=== PATIENT | female | born 1960 | race Caucasian/White ===

== ENCOUNTER → 2020-03-10 | Outpatient (CLI) | payer BC ==
[~2020-03-10] MED LIST: ATEN50 PO; B Complex1 EAC2; CALMAGZIN; FLAX; GLUC500; L-ARGININE1000 MG; LISI20 PO; Mobic15 MG PO; NAPR220 PO; OMEP10ER; OMEPRAZOLE MAGN20 MG PO; TRAM50 PO
[2020-03-11 15:09] LABS: HPV 16 Negative (Negative); HPV 18 Negative (Negative); HPV OTHER HR TYPES Negative (Negative)
== END | disposition home or self-care (01) ==
LOC: LAB SHORT 10:22 → LAB 10:22
PROVIDERS: Obstetrics & Gynecology
DX: Z01.419 Encounter for gynecological examination (general) (routine) without abnormal findings (principal)
CPT/HCPCS: 87624; G0123

== ENCOUNTER 2020-09-04 07:57 | Day surgery (SDC) | payer BC ==
[~2020-09-04] VITALS: Ht 170.2 cm; Wt 99.2 kg
[~2020-09-04 07:57] MED LIST changes: +ATOR20 PO; +ESCITALOPRAM OXA5 MG PO; +METO50ER PO; +MOBIC15 MG PO; +OMEP20ER PO
--- NOTE | 2020-09-04 10:03 | NUR ---
09/04/20 1003 Sarah De La Cruz BUPIVICANE 0.5% & LIDOCAINE 1% 1:100,000 1:[address] CASTILLO PRIOR TO SX START. TOTAL OF 10 MLS INJECTED.
== END 2020-09-04 10:55 | disposition home or self-care (01) ==
LOC: ORSCSDS 07:57
PROVIDERS: Orthopaedic Surgery
PROC: 01N50ZZ Release Median Nerve, Open Approach (ICD-10-PCS; principal; 2020-09-04 09:45)
DX: G56.01 Carpal tunnel syndrome, right upper limb (principal); I10 Essential (primary) hypertension; K21.9 Gastro-esophageal reflux disease without esophagitis; G47.33 Obstructive sleep apnea (adult) (pediatric); E66.01 Morbid (severe) obesity due to excess calories; Z68.34 Body mass index [BMI] 34.0-34.9, adult; Z79.899 Other long term (current) drug therapy
CPT/HCPCS: J0690; J2250; J2704; J3010; J7120

== ENCOUNTER 2020-10-07 10:06 | Day surgery (SDC) | payer BC ==
[~2020-10-07] VITALS: Ht 170.2 cm; Wt 105.1 kg
[~2020-10-07 10:06] MED LIST changes: +ESCITALOPRAM OX10 M1 PO
== END 2020-10-07 12:36 | disposition home or self-care (01) ==
LOC: ORSCSDS 10:06
PROVIDERS: Internal Medicine Gastroenterology
PROC: 0DB58ZX Excision of Esophagus, Via Natural or Artificial Opening Endoscopic, Diagnostic (ICD-10-PCS; principal; 2020-10-07 11:30)
DX: K22.70 Barrett's esophagus without dysplasia (principal); G47.33 Obstructive sleep apnea (adult) (pediatric); E78.5 Hyperlipidemia, unspecified; F41.9 Anxiety disorder, unspecified; I10 Essential (primary) hypertension; K21.9 Gastro-esophageal reflux disease without esophagitis; K44.9 Diaphragmatic hernia without obstruction or gangrene; E66.9 Obesity, unspecified; Z68.36 Body mass index [BMI] 36.0-36.9, adult; Z79.899 Other long term (current) drug therapy
CPT/HCPCS: 88305; J2704; J7120

== ENCOUNTER 2022-05-06 08:10 | Day surgery (SDC) | payer BC ==
[~2022-05-06] VITALS: Ht 167.6 cm; Wt 112.9 kg
--- NOTE | 2022-05-06 09:42 | NUR ---
05/06/22 0942 Sarah De La Cruz 0.15ML OF EPI 1MG/ML ADDED TO 30ML OF BUPIVICAINE 0.5% TO CREATE A SOLUTION OF BUPIVICAINE 0.5% WITH EPI 1:200,000.
--- NOTE | 2022-05-06 10:32 | NUR ---
05/06/22 1032 PEDRO ALCANTARA PT PLACED ON 10L FACE TENT JUST AFTER COMING TO PACU. O2 LEVELS HAD DROPPED ONCE IN PACU. TRIAL TO 5L PT O2 LEVEL IS 100%. PT HAS HX SLEEP APNEA AND USES CP.
--- NOTE | 2022-05-06 11:01 | NUR ---
05/06/22 1101 PEDRO ALCANTARA PAIN PILL GIVEN TO PT- PAIN 5/10 AT THIS TIME. SHE DECLINES IV MEDICATION AT THIS TIME. WOULD LIKE PAIN TO BE 3/10 PRIOR TO GOING HOME IS HER GOAL.
== END 2022-05-06 11:15 | disposition home or self-care (01) ==
LOC: ORSCSDS 08:10
PROVIDERS: Podiatrist Foot & Ankle Surgery
PROC: 0SGN04Z Fusion of Left Metatarsal-Phalangeal Joint with Internal Fixation Device, Open Approach (ICD-10-PCS; principal; 2022-05-06 09:15)
DX: M20.5X2 Other deformities of toe(s) (acquired), left foot (principal); M79.672 Pain in left foot; G47.33 Obstructive sleep apnea (adult) (pediatric); F41.8 Other specified anxiety disorders; I10 Essential (primary) hypertension; K21.9 Gastro-esophageal reflux disease without esophagitis; E78.00 Pure hypercholesterolemia, unspecified; Z79.899 Other long term (current) drug therapy; E66.01 Morbid (severe) obesity due to excess calories; Z68.39 Body mass index [BMI] 39.0-39.9, adult
CPT/HCPCS: A9270; C1713; J0171; J0690; J1885; J2250; J2704; J3010

== ENCOUNTER 2022-06-30 09:41 | Day surgery (SDC) | payer BC ==
[~2022-06-30] VITALS: Ht 170.2 cm; Wt 116.8 kg
--- NOTE | 2022-06-30 11:27 | NUR ---
06/30/22 1127 Debbie Trevino UPDATED PT. THAT WAS RUNNING BEHIND. PT. GIVEN A WARM BLANKET. CALL LIGHT IS WITHIN REACH.
== END 2022-06-30 12:46 | disposition home or self-care (01) ==
LOC: ORSCSDS 09:41
PROVIDERS: Student in an Organized Health Care Education/Training Program
PROC: 0DBG8ZX Excision of Left Large Intestine, Via Natural or Artificial Opening Endoscopic, Diagnostic (ICD-10-PCS; principal; 2022-06-30 11:00)
PROC: 0DBP8ZX Excision of Rectum, Via Natural or Artificial Opening Endoscopic, Diagnostic (ICD-10-PCS; principal; 2022-06-30 11:00)
PROC: 0DBF8ZX Excision of Right Large Intestine, Via Natural or Artificial Opening Endoscopic, Diagnostic (ICD-10-PCS; principal; 2022-06-30 11:00)
DX: R19.7 Diarrhea, unspecified (principal); K62.5 Hemorrhage of anus and rectum; K62.1 Rectal polyp; I10 Essential (primary) hypertension; G47.33 Obstructive sleep apnea (adult) (pediatric); E66.01 Morbid (severe) obesity due to excess calories; Z68.41 Body mass index [BMI] 40.0-44.9, adult; E78.5 Hyperlipidemia, unspecified; F41.8 Other specified anxiety disorders; Z79.899 Other long term (current) drug therapy
CPT/HCPCS: 88305; J2405; J2704; J7120

== ENCOUNTER 2022-08-30 08:49 | Day surgery (SDC) | payer BC ==
[~2022-08-30] VITALS: Ht 170.2 cm; Wt 116.0 kg
[~2022-08-30 08:49] MED LIST changes: +ESTRADIOL
--- NOTE | 2022-08-30 09:50 | NUR ---
Ambulatory in Day Surgery. Pre-Op teaching done. Pt verbalizes understanding. Patient confirms NPO status and agrees with scheduled surgery. Patient reports completing Chlorhexadine shower X2 prior to admission to hospital. Lungs clear T/O to Auscultation.
--- NOTE | 2022-08-30 13:30 | NUR ---
ARRIVED TO ROOM VIA BED, DROWSY, DENIES ANY PAIN, STATES SHE FORGOT HER CPAP, PT DESATS TO 88% ON RA, PLACED ON 2L O2 VIA NC, CPAP ORDERED, CONT. TO MONITOR FOR ANY CHANGES.
--- NOTE | 2022-08-30 18:25 | NUR ---
SHIFT SUMMARY PATIENT NEW ADMIT TO UNIT POST OP R TKA WITH DR CASTILLO. ALERT AND ORIENTED. GENERAL ANESTHESIA, PAIN CONTROLLED WITH NON-NARCOTIC MEDS AT THIS TIME. ABLE TO AMBULATE TO BATHROOM. VOIDING WELL, TOLERATING DIET NAD LIQUIDS. SALINE LOCKED. R KNEE AQUACEL C/D/I. UP TO RECLINER FOR DINNER. SPOUSE ATTENTIVE IN ROOM DURING AFTERNOON. WORKED WITH PHYSICAL THERAPY. PLAN TO DISCHARGE HOME TOMORROW AFTER CLEARING PHYSICAL THERAPY.
[2022-08-31 05:11] LABS: BASOPHILS ABSOLUTE AUTO 0.02 K/mm3 (0.00-0.23); BASOPHILS PERCENT AUTO 0 % (0-2); EOSINOPHILS PERCENT AUTO 0 % (0-6); Hematocrit 33.5 % (33.0-51.0); Hemoglobin 11.5 g/dL (11.5-16.0); IMMATURE GRAN ABSOLUTE AUTO 0.05 K/mm3 (0.00-0.10); IMMATURE GRAN PERCENT AUTO 0 % (0-1); LYMPHOCYTES ABSOLUTE AUTO 0.85 K/mm3 (0.84-5.20); LYMPHOCYTES PERCENT AUTO 6 % (21-46); MONOCYTES ABSOLUTE AUTO 0.62 K/mm3 (0.16-1.47); MONOCYTES PERCENT AUTO 5 % (4-13); Mean Corpuscular HGB 31.1 pg (26.0-34.0); Mean Corpuscular HGB Conc 34.3 g/dL (31.5-36.5); Mean Corpuscular Volume 91 fL (80-100); Mean Platelet Volume 9.5 fL (9.1-12.4); NEUTROPHILS ABSOLUTE AUTO 12.28 K/mm3 (1.96-9.15); NEUTROPHILS PERCENT AUTO 89 % (41-73); Platelet Count 243 K/mm3 (150-400); RDW Coefficient Variation 12.1 % (11.7-14.2); RDW Standard Deviation 39.8 fL (35.1-46.3); White Blood Cell Count 13.82 K/mm3 (4.00-11.30)
[2022-08-31 05:26] LABS: Bun/Creatinine Ratio 16.6 (12.0-20.0); Calcium, Blood 9.1 mg/dL (8.5-10.1); Creatinine, Blood 0.9 mg/dL (0.40-1.00); Potassium, Blood 4.4 mmol/L (3.5-5.5)
--- NOTE | 2022-08-31 06:05 | NUR ---
SHIFT SUMMARY NO ACUTE CHANGES. PT RESTED WELL T/O NIGHT. TYLENOL/TORADOL/1 JODI FOR PAIN MANAGEMENT. DRESSING TO R KNEE REMAINS CDI WITH POLAR PACK IN PLACE. UP WITH 1 ASSIST USING FWW/GB TO AMBULATE. USES CALL LIGHT APPROPRIATELY.
[2022-08-31] MEDS ORDERED: Percocet 5-3251 EACH PO (08:59)
[2022-08-31] MEDS ORDERED: ASPI81CH PO (09:00)
--- NOTE | 2022-08-31 13:10 | NUR ---
DISCHARGE PATIENT CLEARED THERAPY WELL. EATING, DRINKING, & VOIDING WELL. AMBULATING WELL W/ FWW & GB. PAIN MANAGED WELL PER EMAR. DISCUSSED DISCHARGE INSTRUCTIONS & SENT WITH PATIENT. ALSO SENT SCRIPTS, POLAR PACK, & AQUACELS WITH PATIENT. ESCORTED OUT VIA W/C.
== END 2022-08-31 12:56 | disposition home or self-care (01) ==
LOC: ORSCMMR 08:49 → ORD 10:00 → ORSCMMR 10:00 → SURS 13:09 → ORSCMMR 08-31 12:56
PROVIDERS: Orthopaedic Surgery
PROC: 0SRC0JA Replacement of Right Knee Joint with Synthetic Substitute, Uncemented, Open Approach (ICD-10-PCS; principal; 2022-08-30 10:00)
DX: M17.11 Unilateral primary osteoarthritis, right knee (principal); I10 Essential (primary) hypertension; G47.33 Obstructive sleep apnea (adult) (pediatric); K21.9 Gastro-esophageal reflux disease without esophagitis; K44.9 Diaphragmatic hernia without obstruction or gangrene; E66.01 Morbid (severe) obesity due to excess calories; Z68.41 Body mass index [BMI] 40.0-44.9, adult; Z79.899 Other long term (current) drug therapy
CPT/HCPCS: 36415; 73560-RT; 80048; 85025; 94660; 94762; 97110; 97116; 97162; A9270; C1776; J0171; J0690; J0735; J1100; J1885; J2250; J2405; J2704; J2795; J3010; J7120

== ENCOUNTER 2024-02-16 12:36 | Day surgery (SDC) | payer BC ==
[~2024-02-16] VITALS: Ht 170.2 cm; Wt 117.5 kg
[~2024-02-16 12:36] MED LIST changes: +ASPI81CH PO; +Atropine Sulfate 0.1 MG/ML 10ML SYR ONE; +Glycopyrrolate 0.2 MG/ML 1MLVIAL ONE; +Lidocaine 2% 5 ML SDV ONE; +Methylene Blue 1% 100 MG/10 ML VIAL ONE; +Ondansetron HCl 2 MG / ML 2ML Vial ONE; +Percocet 5-3251 EACH PO; +ePHEDrine Sulfate 50 MG/ML 1ML Injection ONE
[2024-02-16] MEDS ORDERED: Lactated Ringer's 1,000 ML IV ONE (13:05)
[2024-02-16] MEDS ORDERED: Midazolam HCL 1 MG/ML 5MLVIAL ONE (13:36)
[2024-02-16] MEDS ORDERED: propofoL 50 ML IV ONE (13:37)
[2024-02-16] MEDS ORDERED: FentaNYL Citrate 50 MCG/ML 2 ML Injection ONE (13:38)
[2024-02-16 15:25] VITALS: BP 121/73
== END 2024-02-16 14:28 | disposition home or self-care (01) ==
LOC: ORSCSDS 12:36
PROVIDERS: Internal Medicine Gastroenterology
PROC: 0DB58ZX Excision of Esophagus, Via Natural or Artificial Opening Endoscopic, Diagnostic (ICD-10-PCS; principal; 2024-02-16 13:45)
PROC: 0DB68ZX Excision of Stomach, Via Natural or Artificial Opening Endoscopic, Diagnostic (ICD-10-PCS; principal; 2024-02-16 13:45)
DX: K22.70 Barrett's esophagus without dysplasia (principal); R10.13 Epigastric pain; K44.9 Diaphragmatic hernia without obstruction or gangrene; K31.7 Polyp of stomach and duodenum; G47.33 Obstructive sleep apnea (adult) (pediatric); I10 Essential (primary) hypertension; E78.5 Hyperlipidemia, unspecified; F41.9 Anxiety disorder, unspecified; F32.A Depression, unspecified; K21.9 Gastro-esophageal reflux disease without esophagitis; E66.01 Morbid (severe) obesity due to excess calories; Z68.41 Body mass index [BMI] 40.0-44.9, adult; Z79.899 Other long term (current) drug therapy
CPT/HCPCS: 88305; 88342; J0461; J2250; J2405; J2704; J3010; J7120; Q9968